=== PATIENT | female | born 1940 | race Caucasian/White ===

== ENCOUNTER 2021-06-13 17:37 | Inpatient (IN) | payer MEDICARE, SELFPAY ==
[2021-06-13 17:06] VITALS: BP 146/77; PULSE 100; RESP 18; TEMP 36.2; O2SAT 96; BMI 18.6
[2021-06-13 18:28] VITALS: PULSE 94; O2SAT 96
--- NOTE | 2021-06-13 19:30 | HP.PCM_ITS ---
HPI - General General Date of Admission: 06/13/21 HPI Narrative 05/30/2021 CHRISTOPH MORGAN, is a 80 Female who underwent biopsy of cervix showing adenocarcinoma. Imaging showed pelvic mass, distant metastasis. 06/06/2021 Patient admitted to [facility] with weakness, confusion. Pain controlled with oral oxycodone. PT/OT for debility. Acute kidney injury secondary to obstruction from pelvic mass. Hyperkalemia resolved with bicarb, insulin, D50. 06/06/2021 Hemodialysis for acute kidney injury, hyperkalemia. 06/07/2021 Hemodialysis for acute kidney injury, hyperkalemia. Bilateral nephrostomy tube placement, good urine output. 06/10/2021 Doing well, pain controlled. 06/13/2021 Admit to TCU with debility, here for rehabilitation, strengthening, prior to disposition determination. [facility] Medical History (Updated 06/13/21 @ 19:[address] Chris Rojo MD) Primary cervical cancer with metastasis to other site Home Medications ascorbic acid (vitamin C) 500 mg PO DAILY 06/13/21 [History Last Taken Unknown] calcium carbonate 2 tab PO DAILY 06/13/21 [History Last Taken Unknown] cholecalciferol (vitamin D3) 10 mcg PO DAILY 06/13/21 [History Last Taken Unknown] ciprofloxacin HCl [Cipro] 250 mg PO Q12H 06/13/21 [History Last Taken Unknown] docusate sodium [Colace] 100 mg PO BID 06/13/21 [History Last Taken Unknown] gabapentin 300 mg PO BID 06/13/21 [History Last Taken Unknown] multivitamin 1 tab PO DAILY 06/13/21 [History Last Taken Unknown] oxycodone 5 mg PO Q4H PRN 06/13/21 [History Last Taken Unknown] Allergy/AdvReac Type Severity Reaction Status Date / Time Penicillins Allergy Other Verified 06/13/21 17:07 Surgical History (Updated 06/13/21 @ 19:[address] Chris Rojo MD) Nephrostomy status Social History (Updated 06/13/21 @ 19:[address] Chris Rojo MD) household members: children Smoking Status: Never smoker alcohol intake: never substance use type: does not use ROS Constitutional Constitutional: Denies chills, fever(s) or weight gain ENT HEENT: Denies headache(s), nasal congestion or nasal discharge Cardiovascular Cardiovascular: Denies chest pain or palpitations Respiratory/Chest Respiratory/Chest: Denies cough, excessive phlegm production or shortness of breath with exertion Gastrointestinal Gastrointestinal: Denies abdominal pain, nausea or vomiting Genitourinary Genitourinary: Denies dysuria Musculoskeletal Musculoskeletal: Denies joint pain or joint swelling Integumentary Integumentary: Denies rash or wounds Neurologic Neurologic: Denies focal weakness, numbness or tingling Psychiatric Psychiatric: Reports auditory hallucinations; Denies anxiety, depression, homicidal ideation or suicidal ideation Vital Signs Vital Signs Vital Signs: 06/13/21 17:06 06/13/21 18:28 Temperature 97.2 F L Temperature Source Temporal Pulse Rate 100 94 Pulse Rhythm Irregular Pulse Strength Normal (2+) Respiratory Rate 18 Respiratory Effort Normal Non-Labored Respiratory Depth Normal Respiratory Pattern Normal Blood Pressure 146/77 H Blood Pressure Mean 100 Blood Pressure Source Monitor Blood Pressure Position Sitting Blood Pressure Location Left Arm Pulse Ox 96 96 Oxygen Delivery Method Room Air Room Air Weight Weight: 50.802 kg Body Mass Index (BMI) 18.6 Physical Exam Const alert and oriented x3 General Appearance: cooperative HEENT normocephalic Eyes PERRL and EOMs intact bilaterally Neck supple, no JVD and no carotid bruits Resp normal respiratory effort, normal air movement and clear to auscultation bilaterally Cardio regular rate and regular rhythm GI normal to inspection, nondistended, normoactive bowel sounds, non-tender and non-distended Back/Spine Back/Spine Narrative: Bilateral nephrostomy tubes to leg bags. Extremity normal capillary refill General Extremity: Negative for edema Skin no rashes or lesions noted General Skin Exam: no breakdown Psych affect normal Appearance: appropriate Results Lab / Micro Data Result Diagrams: 06/14/21 08:40 06/16/21 05:35 Assessment & Plan Assessment/Plan (1) Debility: (2) Nephrostomy status: (3) Hyperkalemia: (4) Acute kidney injury: (5) Bilateral hydronephrosis: (6) Encephalopathy: (7) Primary cervical cancer with metastasis to other site: PLAN: 80 year old female with below past medical history for recent stage 4 cervical cancer, hospitalized for acute kidney failure secondary to obstructive uropathy from pelvic mass, complicated by hyperkalemia, encephalopathy, admitted to TCU with debility, here for rehabilitation, strengthening, prior to disposition determination. * Debility - PT/OT. * Pain - Tylenol 1000mg Q6H prn pain (1-5), Oxycodone 5mg Q4H prn pain (6-10). * Bowel - Miralax 17gm daily, Senna/colace 1 tablet twice daily, Dulcolax 10mg daily prn. * Adult immunization - Administer prevnar 13, pneumovax 23, fluzone, covid19 vaccine as appropriate. * DVT prophylaxis - Lovenox 30mg sc daily. * Vitamin C deficiency - Vitamin C 500mg daily. * Calcium deficiency - TUMS 1000mg daily. * Vitamin D deficiency - D3 25mcg daily, * Urinary tract infection - Cipro 250mg Q12H thru 06/23/2021. * Nutrition - MVI daily, Ensure Enlive 120ml 4x/day. * Neuropathic pain - Gabapentin 300mg twice daily. * Stage 4 cervical cancer - consult palliative care.
[2021-06-13] MEDS: Ciprofloxacin 250 MG Tablet PO (20:52)
[2021-06-13] MEDS: Gabapentin 300 MG Capsule PO (20:52)
[2021-06-13] MEDS: Multivitamins,Therapeutic Tablet 1 TABLET PO (20:52)
[2021-06-13] MEDS: oxyCODONE 5 MG Tablet PO (20:53)
[2021-06-13] MEDS: Senna/Docusate Sodium 1 Tablet PO (20:57)
[2021-06-14] MEDS: Calcium Carbonate 500 MG Tablet 1000 MG PO (06:50)
[2021-06-14] MEDS: Gabapentin 300 MG Capsule PO ×2 (06:50→17:25)
[2021-06-14] MEDS: Enoxaparin 30 MG/0.3 ML Syringe SC (06:51)
[2021-06-14] MEDS: Cholecalciferol (VIT D3) 25 MCG TABLET (1,000 UNITS) PO (06:51)
[2021-06-14] MEDS: Ciprofloxacin 250 MG Tablet PO ×2 (06:51→20:36)
[2021-06-14] MEDS: Ascorbic Acid 500 MG Tablet PO (06:51)
[2021-06-14] MEDS: Polyethylene Glycol 3350 17 GM PACKET PO (06:52)
[2021-06-14] MEDS: Senna/Docusate Sodium 1 Tablet PO ×2 (06:52→17:25)
[2021-06-14 09:03] LABS: Absolute Lymphocyte Count 0.77 X10^3/uL (0.83-4.51); Absolute Neutrophil Count 10.6 X10^3/uL (2.0-7.7); Basophil# 0.06 X10^3/uL; Basophil% 0.5 % (0-1); Eosinophil# 0.19 X10^3/uL; Eosinophils% 1.4 % (0-5); Hematocrit 33.6 % (37-47); Hemoglobin 10.9 g/dL (12.0-15.0); Lymphocyte # 0.77 X10^3/ul (0.83-4.51); Lymphocyte % 5.8 % (19-41); Mean Corp Hgb Conc 32.4 g/dL (32-36); Mean Corpuscular Hgb 29.2 pg (27.0-32.0); Mean Corpuscular Volume 90.1 fL (81-99); Mean Platelet Vol. 9.4 fl (6.2-12.0); Monocyte# 1.61 X10^3/uL; Monocyte% 12.1 % (0-10); NRBC Flagged by Analyzer 0 % (0-5); Neutrophil # 10.55 X10^3/uL (2.7-7.7); Neutrophil % 79.4 % (47-70); POSITIVE DIFFERENTIAL YES; Platelet Count 428 K/mm3 (150-450); RBC Distribution Width CV 14.9 % (11.6-14.6); RBC Distribution Width SD 48.6 fl (35.1-43.9); Red Blood Count 3.73 M/mm3 (4.2-5.4); White Blood Count 13.3 K/mm3 (4.4-11.0)
[2021-06-14 09:04] LABS: Anion Gap 7 (5-15); BUN 16 mg/dL (7-18); BUN/Creat Ratio 13.6 RATIO (10-20); Calcium,Total 8.5 mg/dL (8.5-10.1); Chloride 103 mmol/L (98-107); Creatinine, Serum 1.18 mg/dL (0.55-1.02); EST Glomerular Filtration Rate 47 mL/min (>60); Est Glom Filt Rate - Afr Amer 56 mL/min (>60); Estimated Creatinine Clearance 29.99 ml/min; Glucose 134 mg/dL (74-106); Potassium 3.3 mmol/L (3.5-5.1); Sodium Level 137 mmol/L (136-145)
[2021-06-14 09:09] LABS: Differential Indicated SCAN CRITERIA MET
[2021-06-14 09:59] LABS: Hypochromasia RARE; Platelet Estimate ADEQUATE (ADEQ)
[2021-06-14] MEDS: Tuberculin,Purif.prot.deriv. 50 TU/ML Vial 0.1 ML ID (12:46)
[2021-06-14 13:57] VITALS: BP 111/63; PULSE 89; RESP 16; TEMP 36.9; O2SAT 98
[2021-06-14] MEDS: Bisacodyl 5 MG Tablet 10 MG PO (15:19)
--- NOTE | 2021-06-14 15:35 | NURSING ---
Pt has not had Bowel Movement since 06/10/21 PRN Dulcolax given with prune juice. Will continue to monitor.
[2021-06-14] MEDS: Potassium Chloride Oral Tablet 20 MEQ PO (17:25)
--- NOTE | 2021-06-14 23:46 | NURSING ---
Nephrostomy tubing and bags changed to bilat nephrostomy tubes, assisted by OWEN Mauro using sterile technique.
[2021-06-15 06:12] VITALS: BP 103/40; PULSE 79; RESP 16; TEMP 36.7; O2SAT 95
[2021-06-15] MEDS: Calcium Carbonate 500 MG Tablet 1000 MG PO (06:15)
[2021-06-15] MEDS: Ciprofloxacin 250 MG Tablet PO ×2 (06:15→18:55)
[2021-06-15] MEDS: Ascorbic Acid 500 MG Tablet PO (06:15)
[2021-06-15] MEDS: Cholecalciferol (VIT D3) 25 MCG TABLET (1,000 UNITS) PO (06:16)
--- NOTE | 2021-06-15 06:20 | NURSING ---
B/L nephrostomy each drained for 100 ml james colored urine. Lt nephrostomy bag w/ scant amount of brown sediment. Encouraged pt to consume increased intake of water to prevent dehydration and prevent recurrent infection.
[2021-06-15] MEDS: Enoxaparin 30 MG/0.3 ML Syringe SC (06:22)
[2021-06-15] MEDS: Multivitamins,Therapeutic Tablet 1 TABLET PO (08:38)
[2021-06-15] MEDS: Gabapentin 300 MG Capsule PO ×2 (08:38→17:06)
[2021-06-15] MEDS: Potassium Chloride Oral Tablet 20 MEQ PO ×2 (08:38→17:06)
--- NOTE | 2021-06-15 10:51 | NURSING ---
Called Dr. Rojo to clarify order for Breanne would like to hold the first dose and start 1700. Updated him on pt's BLE Edema no new orders at this time. Pt's up in chair Justin Wraps on BLE and elevated on pillow. Will continue to monitor.
[2021-06-15 12:34] VITALS: BP 108/54; PULSE 82; RESP 16; TEMP 36.5; O2SAT 96
[2021-06-15] MEDS: Senna/Docusate Sodium 1 Tablet PO (17:06)
[2021-06-16] MEDS: Cholecalciferol (VIT D3) 25 MCG TABLET (1,000 UNITS) PO (05:34)
[2021-06-16] MEDS: Ciprofloxacin 250 MG Tablet PO ×2 (05:34→17:50)
[2021-06-16] MEDS: Ascorbic Acid 500 MG Tablet PO (05:34)
[2021-06-16] MEDS: Senna/Docusate Sodium 1 Tablet PO ×2 (05:34→17:50)
[2021-06-16] MEDS: Enoxaparin 30 MG/0.3 ML Syringe SC (05:38)
[2021-06-16 06:34] LABS: Anion Gap 5 (5-15); BUN 16 mg/dL (7-18); BUN/Creat Ratio 15.7 RATIO (10-20); Calcium,Total 8.1 mg/dL (8.5-10.1); Chloride 107 mmol/L (98-107); Creatinine, Serum 1.02 mg/dL (0.55-1.02); EST Glomerular Filtration Rate 55 mL/min (>60); Est Glom Filt Rate - Afr Amer 67 mL/min (>60); Estimated Creatinine Clearance 34.69 ml/min; Glucose 88 mg/dL (74-106); Potassium 4.2 mmol/L (3.5-5.1); Sodium Level 138 mmol/L (136-145)
[2021-06-16] MEDS: Calcium Carbonate 500 MG Tablet 1000 MG PO (08:04)
[2021-06-16] MEDS: Multivitamins,Therapeutic Tablet 1 TABLET PO (08:04)
[2021-06-16] MEDS: Potassium Chloride Oral Tablet 20 MEQ PO ×2 (08:04→17:50)
[2021-06-16] MEDS: Gabapentin 300 MG Capsule PO ×2 (08:04→17:50)
[2021-06-16 09:56] VITALS: PULSE 94; RESP 16; O2SAT 94
--- NOTE | 2021-06-16 10:59 | CASEMGMT ---
Addendum entered by Khloe Elizalde 06/16/21 15:27: Dr. Rojo consulted [facility]. Spoke with Sheba STONE this date - sent clinicals to [facility]. Pt to be seen for new dx of cancer Original Note: Social Work Met with patient for initial assessment. Discussed code status. Pt confirmed DNR-CCA, no intubation. MOLST form completed, communication to , placed in chart. Explained [facility] insurance with NRD 06/16 and continued stay is not guaranteed. The goal is for pt to return home at [facility] with son. Son works manager maritime and unable to assist during work hours. SW to continue to follow for DC planning. Khloe Elizalde, STAFF INTERNIST OFFICE BASED ONLY CRIMINAL INVESTIGATOR
[2021-06-16 13:06] LABS: Pathologist Review Reviewed
--- NOTE | 2021-06-16 14:35 | PHA.CONS_ITS ---
Progress Note - Pharmacy Subjective: TCU Admission Objective: Allergies Penicillins Allergy (Verified 06/13/21 17:07) Other Current Medications Generic Name Dose Route Start Last Admin Trade Name Roberta PRN Reason Stop Dose Admin Acetaminophen 1,000 mg 06/13/21 19:45 Acetaminophen 500 Mg Tablet PO Q6H PRN PRN Pain Score 1-5 Ascorbic Acid 500 mg 06/14/21 06:00 06/16/21 05:34 Ascorbic Acid 500 Mg Tablet PO 500 mg DAILY RUTHANN Administration Bisacodyl 10 mg 06/13/21 19:45 06/14/21 15:19 Bisacodyl 5 Mg Tablet PO 10 mg DAILY PRN Administration Constipation Calcium Carbonate 1,000 mg 06/16/21 08:00 06/16/21 08:04 Calcium Carbonate 500 Mg Tablet PO 1,000 mg DAILY@0800 [facility] Administration Cholecalciferol 25 mcg 06/14/21 06:00 06/16/21 05:34 Cholecalciferol (Vit D3) 25 Mcg Tablet (1,000 Units) PO 25 mcg DAILY RUTHANN Administration Ciprofloxacin HCl 250 mg 06/13/21 18:00 06/16/21 05:34 Ciprofloxacin 250 Mg Tablet PO 06/23/21 18:01 250 mg Q12 RUTHANN Administration Enoxaparin Sodium 30 mg 06/14/21 06:00 06/16/21 05:38 Enoxaparin 30 Mg/0.3 Ml Syringe SC 30 mg DAILY@0600 RUTHANN Administration Gabapentin 300 mg 06/15/21 08:00 06/16/21 08:04 Gabapentin 300 Mg Capsule PO 300 mg BIDCM RUTHANN Administration Multivitamins 1 tablet 06/14/21 08:00 06/16/21 08:04 Multivitamins,Therapeutic Tablet PO 1 tablet DAILYCM [facility] Administration Nutritional Formula (Lactose Free) 120 ml 06/13/21 22:00 06/16/21 11:49 Ensure Enlive 120 Ml Liquid PO Not Given 4X/DAY [facility] Oxycodone HCl 5 mg 06/13/21 19:47 06/13/21 20:53 Oxycodone 5 Mg Tablet PO 5 mg Q4H PRN Administration Pain Score 6-10 Polyethylene Glycol 17 gm 06/14/21 06:00 06/16/21 05:34 Polyethylene Glycol 3350 17 Gm Packet PO Not Given DAILY [facility] Potassium Chloride 20 meq 06/15/21 12:00 06/16/21 08:04 Potassium Chloride Oral Tablet 20 Meq PO 20 meq BIDCM RUTHANN Administration Senna/Docusate Sodium 1 tablet 06/13/21 20:00 06/16/21 05:34 Senna/Docusate Sodium 1 Tablet PO 1 tablet BID RUTHANN Administration Tuberculin PPD 0.1 ml 06/21/21 10:00 Tuberculin,Purif.Prot.Deriv. 50 Tu/Ml Vial ID 06/21/21 10:01 X1 ONE Problem List (Last Updated 06/13/21 @ 19:[address] Chris Rojo MD) Primary cervical cancer with metastasis to other site (Acute) Encephalopathy (Acute) Bilateral hydronephrosis (Acute) Acute kidney injury (Acute) Hyperkalemia (Acute) Debility (Acute) Nephrostomy status (Acute) Vital Signs Temp Pulse Resp BP Pulse Ox 97.7 F L 94 16 108/54 L 94 06/15/21 12:34 06/16/21 09:56 06/16/21 09:56 06/15/21 12:34 06/16/21 09:56 Oxygen Delivery Method Room Air Weight: 50.802 kg Body Mass Index (BMI) 18.6 Sodium 138 mmol/L (136-145) 06/16/21 05:35 Potassium 4.2 mmol/L (3.5-5.1) 06/16/21 05:35 Chloride 107 mmol/L (98-107) 06/16/21 05:35 Carbon Dioxide 26.0 mmol/L (21.0-32.0) 06/16/21 05:35 Anion Gap 5 (5-15) 06/16/21 05:35 BUN 16 mg/dL (7-18) 06/16/21 05:35 Creatinine 1.02 mg/dL (0.55-1.02) 06/16/21 05:35 Est GFR (MDRD) Af Amer 67 mL/min (>60) 06/16/21 05:35 Est GFR (MDRD) Non-Af 55 mL/min (>60) L 06/16/21 05:35 BUN/Creatinine Ratio 15.7 RATIO (10-20) 06/16/21 05:35 Glucose 88 mg/dL (74-106) 06/16/21 05:35 Assessment/Plan: 1. Pain: acetaminophen 1000mg PO Q6H PRN pain 1-5 and oxycodone 5mg PO Q4H PRN pain 6-10. Please continue to monitor for increased pain, PRN usage, constipation and respiratory depression. 2. UTI: ciprofloxacin 250mg PO Q12 thru 06/23/21. Please continue to monitor for S/S of infection, diarrhea, urine culture and joint pain. *3. DVT prophylaxis: enoxaparin 30mg SC daily. Please consider increasing dose to 40mg due to CrCl >30mL/min (patient's CrCl 34.7mL/min). Thanks. Please continue to monitor for S/S of bleeding, hemoglobin (last 10.9g/dL) and platelets (last 428,000). 4. Neuropathic pain: gabapentin 300mg PO BID. Please continue to monitor for S/S of confusion and renal function. *5. Vitamin C and D deficiency/calcium deficiency: ascorbic acid 500mg PO daily, calcium carbonate 1000mg PO DAILYCM, and cholecalciferol 25mcg PO daily. Please continue to monitor calcium (last 8.1mg/dL). Please consider ordering a vitamin D level (patient does not have one in chart.) Thanks. Psychotropic Medications: None Unnecessary Medications: None Bowel Regimen: Miralax 17gm PO daily, senna/docusate 1T PO BID and bisacodyl 10mg PO daily PRN constipation. Please continue to monitor for constipation and PRN usage. Date of Note:: 06/16/21
[2021-06-16 16:00] VITALS: BP 107/74; PULSE 74; RESP 17; TEMP 36.7; O2SAT 96
--- NOTE | 2021-06-16 16:55 | CON.PCM.PA_ITS ---
Assessment & Plan Assessment/Plan (1) Debility: (2) Primary cervical cancer with metastasis to other site: (3) Encephalopathy: (4) Bilateral hydronephrosis: (5) Nephrostomy status: (6) Bilateral lower extremity edema: PLAN: 80-year-old female with newly diagnosed metastatic cervical cancer, seen today for palliative care consultation for symptom management of cancer related pain, weakness, and debility. 1. Cancer related pain/metastatic cervical cancer: Stable, she is controlled on oxycodone 5 mg q4 hours PRN and acetaminophen 1 g every 6 hours PRN. She also takes gabapentin 300 mg twice daily. We will continue to monitor and adjust medications as needed. 2. Debility and weakness: She is receiving therapy, we will monitor her progress. 3. Encephalopathy/bilateral hydronephrosis s/p nephrostomy tubes/lower extremity edema: Complicates overall care, management, recovery, and prognosis. Thank you for the opportunity to participate in this patient's care, please do not hesitate to contact [facility] with any further questions or concerns. Palliative direct line is [phone]. Daughter and patient are interested in liaison visit, we will have that arranged within the next 24 to 48 hours. Please let us know when the patient is discharged so we have prompt follow-up at that time. Greater than 50% of F2F visit dedicated to education and counseling of palliative care services, medications, comorbid conditions and potential assistance with management, and plan of care moving forward. Start time: 1655 End time: 1744 HPI Consult Data Date of Consult: 06/16/21 HPI Narrative HPI Narrative: CHRISTOPH MORGAN, is a 80 F who presented to [facility] transitional care unit from [facility] for therapy after being hospitalized with weakness, confusion, and biopsy of cervix which showed adenocarcinoma. Imaging revealed a pelvic mass with distant metastasis. She was started on oxycodone at the hospital. Was also treated for an KANNAN secondary to obstructive uropathy from pelvic mass. She required hemodialysis for the KANNAN and hyperkalemia. Subsequently, bilateral nephrostomy tubes were placed and has been doing fairly well since. Her white count on 06/14 was 13.3. Platelets are stable at 428. Potassium a little low at 3.3 and creatinine 1.18 with a BUN of 16. Patient lives at home with her son. He cannot be her full-time caregiver as he works full-time. Patient is typically very independent at home and performs all her own ADLs. She is very active other than recently due to her fatigue and lower extremity edema, which is making it difficult to ambulate. She is interested in some DME when she returns home, including possibly a walker. She is also interested in ongoing therapy when she is discharged. Patient follows with Dr. Pretty at [place] for oncology. She lives in [place]. Patient denies any nausea or vomiting. No pain. She does feel weak and tired, again has lower extremity edema that is new the past couple of weeks. She has tried ALYSON hose but they are too difficult for her to don. Currently has Justin wraps, which seemed to be falling down constantly. Denies any further confus ion, daughter Nieves says she is forgetful. No chest pain or shortness of breath. She does have some lower abdominal pain/low back pain at times. Abdomen and groin area have been swollen/edematous. [facility] Medical History Primary cervical cancer with metastasis to other site Home Medications ascorbic acid (vitamin C) 500 mg PO DAILY 06/13/21 [History Last Taken Unknown] calcium carbonate 2 tab PO DAILY 06/13/21 [History Last Taken Unknown] cholecalciferol (vitamin D3) 10 mcg PO DAILY 06/13/21 [History Last Taken Unknown] ciprofloxacin HCl [Cipro] 250 mg PO Q12H 06/13/21 [History Last Taken Unknown] docusate sodium [Colace] 100 mg PO BID 06/13/21 [History Last Taken Unknown] gabapentin 300 mg PO BID 06/13/21 [History Last Taken Unknown] multivitamin 1 tab PO DAILY 06/13/21 [History Last Taken Unknown] oxycodone 5 mg PO Q4H PRN 06/13/21 [History Last Taken Unknown] Allergy/AdvReac Type Severity Reaction Status Date / Time Penicillins Allergy Other Verified 06/13/21 17:07 Surgical History Nephrostomy status Social History household members: children Smoking Status: Never smoker alcohol intake: never substance use type: does not use ROS ROS Narrative Review of systems otherwise negative from a constitutional, HEENT, respiratory, cardiovascular, GI, genitourinary, musculoskeletal, skin, neurologic, psychiatric and hematologic system unless stated above. Physical Exam Const alert, oriented x3 and no apparent distress Constitutional Narrative: Eating up in recliner, appears mildly uncomfortable and shifting positions often. General Appearance: cooperative HEENT normocephalic and head/scalp atraumatic Neck supple General: trachea midline Resp Effort and Inspection: able to speak in complete sentences and symmetric chest movement Auscultation: clear to auscultation bilaterally Cardio S1 normal heart sound and S2 normal heart sound GI soft to palpation GI Narrative: Mild distention, edematous Auscultation: normoactive bowel sounds Narrative: Bilateral nephrostomy tubes, dressings are intact. Extremity General Extremity: edema; Negative for clubbing or cyanosis Skin Skin Narrative: Skin tear left arm Neuro CN's II-XII intact bilaterally, moves all extremities and no focal motor deficits Psych mental status grossly normal Memory / Cognition: other Recent mental status change, seems to be back to baseline per family.
--- NOTE | 2021-06-16 16:56 | NURSING ---
pt and family called staff in room. pt attempting to reposition in bed and hit left arm on side of bed and torn the skin of her left arm. This nurse applied dressing for protection. pt tolerated well.
[2021-06-17 06:24] LABS: Anion Gap 6 (5-15); BUN 17 mg/dL (7-18); Calcium,Total 8.3 mg/dL (8.5-10.1); Chloride 106 mmol/L (98-107); EST Glomerular Filtration Rate 56 mL/min (>60); Est Glom Filt Rate - Afr Amer 68 mL/min (>60); Estimated Creatinine Clearance 35.39 ml/min; Glucose 89 mg/dL (74-106); Potassium 4.4 mmol/L (3.5-5.1); Sodium Level 140 mmol/L (136-145)
[2021-06-17] MEDS: Polyethylene Glycol 3350 17 GM PACKET PO (06:53)
[2021-06-17] MEDS: Enoxaparin 30 MG/0.3 ML Syringe SC (06:53)
[2021-06-17] MEDS: Cholecalciferol (VIT D3) 25 MCG TABLET (1,000 UNITS) PO (06:53)
[2021-06-17] MEDS: Ciprofloxacin 250 MG Tablet PO ×2 (06:53→16:52)
[2021-06-17] MEDS: Ascorbic Acid 500 MG Tablet PO (06:53)
[2021-06-17] MEDS: Senna/Docusate Sodium 1 Tablet PO (06:54)
[2021-06-17] MEDS: Multivitamins,Therapeutic Tablet 1 TABLET PO (08:57)
[2021-06-17] MEDS: Potassium Chloride Oral Tablet 20 MEQ PO ×2 (08:57→16:52)
[2021-06-17] MEDS: Calcium Carbonate 500 MG Tablet 1000 MG PO (08:57)
[2021-06-17] MEDS: Gabapentin 300 MG Capsule PO ×2 (08:57→16:52)
[2021-06-17] MEDS: Acetaminophen 500 MG Tablet 1000 MG PO ×2 (08:59→18:31)
--- NOTE | 2021-06-17 10:40 | NURSING ---
EMPTIED NEPH TUBES, LT 50CC YELLOW URINE, RT 60CC TEA COLORED.
[2021-06-17 13:45] VITALS: BP 114/72; PULSE 75; RESP 18; TEMP 36.6; O2SAT 98
--- NOTE | 2021-06-17 14:32 | NURSING ---
spoke with [facility] regarding showering & dressing changes to neph tubes. showers ok but do not soak nephrostomy tube areas avoid direct spray, dressing changes to tube sites is weekly.
[2021-06-17 20:00] VITALS: PULSE 72; RESP 14; O2SAT 95
--- NOTE | 2021-06-18 01:41 | NURSING ---
Nephrostomy tubes emptied at this time. Left tube tea colored urine with sediment 85cc, right tube clear yellow urine 90cc.
[2021-06-18] MEDS: oxyCODONE 5 MG Tablet PO ×2 (04:03→20:08)
[2021-06-18] MEDS: Cholecalciferol (VIT D3) 25 MCG TABLET (1,000 UNITS) PO (05:47)
[2021-06-18] MEDS: Senna/Docusate Sodium 1 Tablet PO (05:47)
[2021-06-18] MEDS: Ciprofloxacin 250 MG Tablet PO ×2 (05:47→17:03)
[2021-06-18] MEDS: Polyethylene Glycol 3350 17 GM PACKET PO (05:47)
[2021-06-18] MEDS: Enoxaparin 30 MG/0.3 ML Syringe SC (05:47)
[2021-06-18] MEDS: Ascorbic Acid 500 MG Tablet PO (05:47)
--- NOTE | 2021-06-18 06:00 | NURSING ---
Nephrostomy bags emptied at this time, clear yellow urine right nephrostomy 70cc, left nephrostomy tube 60cc james urine. Urine observed returned to clear yellow urine in left nephrostomy tube.
[2021-06-18] MEDS: Gabapentin 300 MG Capsule PO ×2 (07:54→17:03)
[2021-06-18] MEDS: Calcium Carbonate 500 MG Tablet 1000 MG PO (07:54)
[2021-06-18] MEDS: Potassium Chloride Oral Tablet 20 MEQ PO ×2 (07:54→17:03)
[2021-06-18] MEDS: Multivitamins,Therapeutic Tablet 1 TABLET PO (07:54)
--- NOTE | 2021-06-18 14:34 | CASEMGMT ---
Social Work Plan of care meeting held today with pt present and dgt Chitina on conference call. Pt is receiving Physical therapy and Occupational therapy and progressing with care. Pt updated that NRD is 06/24 with projected d/c on 06/27. IDT is recommending 24 supervision upon return home and pt and dgt informed. Pt lives at home with her son, however he does work and is gone often in the evenings and weekends. Pt is home alone a great amount of time. SW provided information, verbal and written, on private duty care, home health care, Adult Day care, shelter facility and assisted living. Pt scheduled for family training on Wednesday. Pt and family will made decision on discharge plan after family training. Palliative medicine has seen pt and will follow for services once pt is discharged. Will continue with plan of care at this time. Per dgts request, resources also provided on OSHIIP program to assist pt and family in medicare and insurance decisions during open enrollment period. Kory MEADOWS
[2021-06-18 14:56] VITALS: BP 110/58; PULSE 85; RESP 16; TEMP 36.6; O2SAT 96
--- NOTE | 2021-06-18 16:53 | CHAPLAIN ---
Type of Pastoral Visit _x__ Initial Visit ___ Follow-up Visit ___ On-call Visit ___ General Patient Visit ___ Spiritual Assessment ___ Family Conference ___ Bereavement ___ Rapid Response ___ Code Blue ___ Other (describe below) Pastoral Care Referral From _x__ Patient ___ Family ___ Nurse ___ Physician ___ Supervisor [employer] ___ Golf Ball Inspector ___ Other (describe below) Sacrament/Intervention _x__ Active listening ___ Anointing ___ Scientology ___ Bereavement ___ Communion ___ Aggie exploration ___ _x__ Life review _x__ Prayer ___ Reconciliation ___ Sacrament of Sick _x__ Supportive presence ___ Wedding ___ Other (describe below) Pastoral Comments patient is former employee of [employer]. and a member of [facility] [employer] [facility] [employer] in [place]
[2021-06-18] MEDS: Menthol/Lanolin/Calamine/Znox 113 GM Tube 1 APPLIC TOPICAL (17:04)
[2021-06-18 19:57] VITALS: PULSE 92; RESP 16; O2SAT 94
[2021-06-19] MEDS: oxyCODONE 5 MG Tablet PO ×2 (03:52→20:01)
[2021-06-19] MEDS: Menthol/Lanolin/Calamine/Znox 113 GM Tube 1 APPLIC TOPICAL ×2 (05:02→17:39)
[2021-06-19] MEDS: Ciprofloxacin 250 MG Tablet PO ×2 (05:03→17:39)
[2021-06-19] MEDS: Polyethylene Glycol 3350 17 GM PACKET PO (05:03)
[2021-06-19] MEDS: Senna/Docusate Sodium 1 Tablet PO (05:04)
[2021-06-19] MEDS: Ascorbic Acid 500 MG Tablet PO (05:05)
[2021-06-19] MEDS: Cholecalciferol (VIT D3) 25 MCG TABLET (1,000 UNITS) PO (05:05)
[2021-06-19] MEDS: Potassium Chloride Oral Tablet 20 MEQ PO ×2 (07:56→17:39)
[2021-06-19] MEDS: Gabapentin 300 MG Capsule PO ×2 (07:56→17:38)
[2021-06-19] MEDS: Multivitamins,Therapeutic Tablet 1 TABLET PO (07:56)
[2021-06-19] MEDS: Calcium Carbonate 500 MG Tablet 1000 MG PO (07:56)
[2021-06-19] MEDS: Acetaminophen 500 MG Tablet 1000 MG PO (15:37)
[2021-06-19 16:21] VITALS: BP 110/56; PULSE 87; RESP 16; TEMP 36.6; O2SAT 95
[2021-06-19 16:37] VITALS: PULSE 87; RESP 16; O2SAT 94
[2021-06-20] MEDS: oxyCODONE 5 MG Tablet PO (03:07)
--- NOTE | 2021-06-20 03:07 | NURSING ---
Addendum entered by Marylu Flores 06/20/21 06:51: Justin wraps applied per order. I don't like those wraps. educated on purpose of justin wraps and nephrostomy tubes, pt. states Can't we just pull them out? They are uncomfortable.Pt. educated on need for nephrostomy tubes to stay in place and educated not to attempt to remove them, pt. states oh I guess I need them. PRN Tylenol administered for pain to BLE per pt. request. No distress observed or reported. A&Ox3 with forgetfulness. Written communication left for regarding edema, lung sounds and non-compliance with BLE elevation. Original Note: POLITICAL ANTHROPOLOGIST reports patient restless, c/o pain. Pt. immediately assessed. Presents as restless, states I just can't get comfortable, my legs are hurting. Repositioned to promote comfort. Pt. noted to become restless when painful. Pt. educated on ordered pharmacologic options for pain management and encouraged to notify nurse when painful- pt. verbalized understanding. Nephrostomy bags emptied. Fluids offered and tolerated well. Edema remains to BLE, +3, lung sounds clear/diminished lower lobes. Resps even and unlabored. Pt. educated on importance of elevating BLE, verbalizes understanding but states does not like to elevate due to discomfort. Encouraged to elevate BLE as tolerated. PRN Oxy administered as ordered per pt. request. No distress observed or reported. Denies further requests. Call light in reach.
[2021-06-20] MEDS: Senna/Docusate Sodium 1 Tablet PO ×2 (04:51→16:19)
[2021-06-20] MEDS: Ciprofloxacin 250 MG Tablet PO ×2 (04:51→16:19)
[2021-06-20] MEDS: Menthol/Lanolin/Calamine/Znox 113 GM Tube 1 APPLIC TOPICAL ×2 (04:51→16:20)
[2021-06-20] MEDS: Polyethylene Glycol 3350 17 GM PACKET PO (04:51)
[2021-06-20] MEDS: Ascorbic Acid 500 MG Tablet PO (04:51)
[2021-06-20] MEDS: Cholecalciferol (VIT D3) 25 MCG TABLET (1,000 UNITS) PO (04:52)
[2021-06-20] MEDS: Acetaminophen 500 MG Tablet 1000 MG PO ×2 (06:49→20:05)
[2021-06-20] MEDS: Calcium Carbonate 500 MG Tablet 1000 MG PO (08:26)
[2021-06-20] MEDS: Potassium Chloride Oral Tablet 20 MEQ PO ×2 (08:26→16:19)
[2021-06-20] MEDS: Multivitamins,Therapeutic Tablet 1 TABLET PO (08:26)
[2021-06-20] MEDS: Furosemide 40 MG Tablet PO (08:26)
[2021-06-20] MEDS: Gabapentin 300 MG Capsule PO ×2 (08:26→16:19)
--- NOTE | 2021-06-20 13:40 | CASEMGMT ---
Social Work Met with patient and dtr to answer questions and follow up on DC plans. Reiterated information from conversation with DORI Vidal prior. Encouraged dtr to make a decision and notify this worker by 06/23 to provide update to insurance 06/24 on plan. Family would like to see outcome of oncology appt 06/26, however, cautioned, insurance may not approve days to hear that outcome as DC recommendations will not change. Dtr expressed understanding. SW to continue to follow. JULISSA ChildersW
[2021-06-20 16:00] VITALS: BP 114/59; PULSE 89; RESP 16; TEMP 36.4; O2SAT 95
[2021-06-20 20:00] VITALS: PULSE 78; RESP 14; O2SAT 95
[2021-06-21] MEDS: Acetaminophen 500 MG Tablet 1000 MG PO ×2 (05:52→22:12)
[2021-06-21] MEDS: Polyethylene Glycol 3350 17 GM PACKET PO (05:53)
[2021-06-21] MEDS: Menthol/Lanolin/Calamine/Znox 113 GM Tube 1 APPLIC TOPICAL ×2 (05:53→16:21)
[2021-06-21] MEDS: Senna/Docusate Sodium 1 Tablet PO ×2 (05:53→16:21)
[2021-06-21] MEDS: Cholecalciferol (VIT D3) 25 MCG TABLET (1,000 UNITS) PO (05:53)
[2021-06-21] MEDS: Ciprofloxacin 250 MG Tablet PO ×2 (05:53→16:21)
[2021-06-21] MEDS: Ascorbic Acid 500 MG Tablet PO (05:53)
[2021-06-21] MEDS: Furosemide 40 MG Tablet PO (05:54)
[2021-06-21 07:00] LABS: Absolute Lymphocyte Count 0.88 X10^3/uL (0.83-4.51); Absolute Neutrophil Count 8.2 X10^3/uL (2.0-7.7); Basophil# 0.07 X10^3/uL; Basophil% 0.6 % (0-1); Eosinophil# 0.27 X10^3/uL; Eosinophils% 2.5 % (0-5); Hematocrit 27.8 % (37-47); Hemoglobin 8.9 g/dL (12.0-15.0); Lymphocyte # 0.88 X10^3/ul (0.83-4.51); Lymphocyte % 8.1 % (19-41); Mean Corpuscular Hgb 28.9 pg (27.0-32.0); Mean Corpuscular Volume 90.3 fL (81-99); Mean Platelet Vol. 9.2 fl (6.2-12.0); Monocyte# 1.36 X10^3/uL; Monocyte% 12.5 % (0-10); NRBC Flagged by Analyzer 0 % (0-5); Neutrophil % 75.5 % (47-70); Platelet Count 316 K/mm3 (150-450); RBC Distribution Width CV 15.7 % (11.6-14.6); RBC Distribution Width SD 51.8 fl (35.1-43.9); Red Blood Count 3.08 M/mm3 (4.2-5.4); White Blood Count 10.9 K/mm3 (4.4-11.0)
[2021-06-21 07:51] LABS: Anion Gap 7 (5-15); BUN 19 mg/dL (7-18); Calcium,Total 8.4 mg/dL (8.5-10.1); Chloride 107 mmol/L (98-107); Creatinine, Serum 1.12 mg/dL (0.55-1.02); EST Glomerular Filtration Rate 50 mL/min (>60); Est Glom Filt Rate - Afr Amer 60 mL/min (>60); Estimated Creatinine Clearance 35.45 ml/min; Glucose 87 mg/dL (74-106); Potassium 4.7 mmol/L (3.5-5.1); Sodium Level 140 mmol/L (136-145)
[2021-06-21] MEDS: Gabapentin 300 MG Capsule PO ×2 (09:24→16:21)
[2021-06-21] MEDS: Multivitamins,Therapeutic Tablet 1 TABLET PO (09:24)
[2021-06-21] MEDS: Potassium Chloride Oral Tablet 20 MEQ PO ×2 (09:24→16:21)
[2021-06-21] MEDS: Calcium Carbonate 500 MG Tablet 1000 MG PO (09:24)
[2021-06-21] MEDS: Tuberculin,Purif.prot.deriv. 50 TU/ML Vial 0.1 ML ID (14:46)
[2021-06-21 15:11] VITALS: BP 108/57; PULSE 83; RESP 16; TEMP 36.9; O2SAT 94
--- NOTE | 2021-06-21 20:05 | NURSING ---
Pt calls for assist w/ repositioning. Positioned on left side w/ pillow behind back. Call light w/ in reach.
[2021-06-21 21:41] VITALS: PULSE 94; RESP 12; O2SAT 96
[2021-06-22] MEDS: Cholecalciferol (VIT D3) 25 MCG TABLET (1,000 UNITS) PO (06:27)
[2021-06-22] MEDS: Senna/Docusate Sodium 1 Tablet PO ×2 (06:27→16:32)
[2021-06-22] MEDS: Ciprofloxacin 250 MG Tablet PO ×2 (06:27→16:32)
[2021-06-22] MEDS: Menthol/Lanolin/Calamine/Znox 113 GM Tube 1 APPLIC TOPICAL ×2 (06:27→16:33)
[2021-06-22] MEDS: Polyethylene Glycol 3350 17 GM PACKET PO (06:27)
[2021-06-22] MEDS: Furosemide 40 MG Tablet PO (06:27)
[2021-06-22] MEDS: Ascorbic Acid 500 MG Tablet PO (06:27)
[2021-06-22 08:31] LABS: Anion Gap 9 (5-15); BUN 20 mg/dL (7-18); BUN/Creat Ratio 18.3 RATIO (10-20); Calcium,Total 8.6 mg/dL (8.5-10.1); Chloride 106 mmol/L (98-107); Creatinine, Serum 1.09 mg/dL (0.55-1.02); EST Glomerular Filtration Rate 51 mL/min (>60); Est Glom Filt Rate - Afr Amer 62 mL/min (>60); Estimated Creatinine Clearance 36.42 ml/min; Glucose 107 mg/dL (74-106); Potassium 3.9 mmol/L (3.5-5.1); Sodium Level 140 mmol/L (136-145)
[2021-06-22] MEDS: Potassium Chloride Oral Tablet 20 MEQ PO ×2 (08:45→16:33)
[2021-06-22] MEDS: Multivitamins,Therapeutic Tablet 1 TABLET PO (08:45)
[2021-06-22] MEDS: Calcium Carbonate 500 MG Tablet 1000 MG PO (08:45)
[2021-06-22] MEDS: Gabapentin 300 MG Capsule PO ×2 (08:45→16:33)
[2021-06-22] MEDS: Acetaminophen 500 MG Tablet 1000 MG PO ×2 (08:47→20:12)
[2021-06-22 14:14] VITALS: BP 101/62; PULSE 93; RESP 16; TEMP 36.3; O2SAT 99
[2021-06-23] MEDS: Acetaminophen 500 MG Tablet 1000 MG PO ×3 (04:00→17:23)
[2021-06-23] MEDS: Senna/Docusate Sodium 1 Tablet PO (04:01)
[2021-06-23] MEDS: Ascorbic Acid 500 MG Tablet PO (04:01)
[2021-06-23] MEDS: Furosemide 40 MG Tablet PO (04:01)
[2021-06-23] MEDS: Ciprofloxacin 250 MG Tablet PO ×2 (04:01→17:26)
[2021-06-23] MEDS: Cholecalciferol (VIT D3) 25 MCG TABLET (1,000 UNITS) PO (04:01)
[2021-06-23] MEDS: Menthol/Lanolin/Calamine/Znox 113 GM Tube 1 APPLIC TOPICAL ×2 (04:01→17:31)
[2021-06-23] MEDS: Polyethylene Glycol 3350 17 GM PACKET PO (04:01)
[2021-06-23] MEDS: Multivitamins,Therapeutic Tablet 1 TABLET PO (07:54)
[2021-06-23] MEDS: Calcium Carbonate 500 MG Tablet 1000 MG PO (07:54)
[2021-06-23] MEDS: Potassium Chloride Oral Tablet 20 MEQ PO ×2 (07:54→17:25)
[2021-06-23] MEDS: Gabapentin 300 MG Capsule PO ×2 (07:54→17:25)
[2021-06-23] MEDS: oxyCODONE 5 MG Tablet PO ×3 (10:50→21:45)
[2021-06-23 14:55] VITALS: BP 118/59; PULSE 95; RESP 18; TEMP 36.4; O2SAT 96
--- NOTE | 2021-06-23 15:20 | CASEMGMT ---
Social Work Spoke with dtr about DC plans. Dtr hired home health aides to assist pt in the home. Dtr requesting skilled HHC, FWW with basket and 3-in-1 commode. SW to make referrals at time of DC. Family/aides to assist with dressing changes. Will notify dtr of insurance outcome 06/24. Will continue to follow. JULISSA ChildersW
[2021-06-23 22:00] VITALS: PULSE 91; RESP 14; O2SAT 98
[2021-06-24] MEDS: Acetaminophen 500 MG Tablet 1000 MG PO ×3 (00:01→21:14)
[2021-06-24] MEDS: oxyCODONE 5 MG Tablet PO ×2 (04:45→15:21)
[2021-06-24] MEDS: Ascorbic Acid 500 MG Tablet PO (04:46)
[2021-06-24] MEDS: Polyethylene Glycol 3350 17 GM PACKET PO (04:46)
[2021-06-24] MEDS: Furosemide 40 MG Tablet PO (04:46)
[2021-06-24] MEDS: Cholecalciferol (VIT D3) 25 MCG TABLET (1,000 UNITS) PO (04:46)
[2021-06-24] MEDS: Menthol/Lanolin/Calamine/Znox 113 GM Tube 1 APPLIC TOPICAL ×3 (04:47→21:13)
[2021-06-24] MEDS: Senna/Docusate Sodium 1 Tablet PO ×2 (04:52→17:10)
[2021-06-24] MEDS: Multivitamins,Therapeutic Tablet 1 TABLET PO (08:04)
[2021-06-24] MEDS: Gabapentin 300 MG Capsule PO ×2 (08:04→17:10)
[2021-06-24] MEDS: Calcium Carbonate 500 MG Tablet 1000 MG PO (08:04)
[2021-06-24] MEDS: Potassium Chloride Oral Tablet 20 MEQ PO ×2 (08:04→17:10)
--- NOTE | 2021-06-24 15:04 | CASEMGMT ---
Social Work Insurance issued LCD 06/26, DC 06/27. Spoke with dtr whom is agreeable to DC. Confirmed DC home. Dtr requesting [facility]. Referral made for PT/OT/SN/[place]. Dtr requesting FWW, w/c, and 3-in-1 commode. Explained insurance will pay for w/c and BSC, dtr can purchase FWW - referred to [employer]. Dtr to transport pt at 11 am. Dtr is teachable caregiver for nephrostomy tube dressing changes. Plan: DC home 06/27 with family support, nonskilled JAVA [employer] SERVICES DEVELOPER, [facility] PT/OT/SN/[place], [employer] - FWW, BSC Khloe Elizalde, FOOT ROENTGENOLOGIST BEAMSTER
[2021-06-24 16:20] VITALS: BP 104/42; PULSE 97; RESP 18; TEMP 37.3; O2SAT 96
--- NOTE | 2021-06-24 19:52 | DS.PCM_ITS ---
Providers Date of Admission: 06/13/21 Consultations 06/13/21 19:45 Consult: Hospice / Palliative Care Routine Consulting Provider: [facility] Reason for Consult: Palliative for stage 4 cervical cancer, ureteral obstr uction. EMERGENT Consult: No MD Notified: Yes Date Notified: 06/13/21 Time Notified: 19:47 Method of Notification: Verbal Reason For Visit: ACUTE KIDNEY INJURY Diagnosis Discharge Diagnosis (1) Debility: Status: Acute Code(s): R53.81 - Other malaise (2) Primary cervical cancer with metastasis to other site: Status: Acute Code(s): C53.9 - Malignant neoplasm of cervix uteri, unspecified (3) Encephalopathy: Status: Acute Code(s): G93.40 - Encephalopathy, unspecified (4) Bilateral hydronephrosis: Status: Acute Code(s): N13.30 - Unspecified hydronephrosis (5) Nephrostomy status: Status: Acute Code(s): Z93.6 - Other artificial openings of urinary tract status (6) Bilateral lower extremity edema: Status: Acute Code(s): R60.0 - Localized edema Medications at Discharge Home Medications ascorbic acid (vitamin C) 500 mg PO DAILY 06/13/21 calcium carbonate 2 tab PO DAILY 06/13/21 cholecalciferol (vitamin D3) 10 mcg PO DAILY 06/13/21 multivitamin 1 tab PO DAILY 06/13/21 acetaminophen 1,000 mg PO Q6H PRN PRN #0 tab 06/24/21 bisacodyl 10 mg PO DAILY PRN #0 tab 06/24/21 furosemide 40 mg PO DAILY 30 Days #30 tab 06/24/21 gabapentin 300 mg PO BID 30 Days #30 cap 06/24/21 menthol-zinc oxide [Calmoseptine] 1 applic TOPICAL BID #0 g 06/24/21 oxycodone 5 mg PO Q4H PRN 7 Days #42 tab 06/24/21 polyethylene glycol 3350 [HealthyLax] 17 g PO DAILY 30 Days #30 ea 06/24/21 potassium chloride [Klor-Con M20] 20 meq PO BIDCM 30 Days #60 tab 06/24/21 sennosides-docusate sodium [Stool Softener-Stimulant Laxat] 1 tab PO BID 30 Days #60 tab 06/24/21 Hospital Course Operations None Procedures - (Bilateral nephrostomy tubes.) Summary of Care Provided Minutes Spent on Discharge: 35 Hospital Course: 80 year old female with below past medical history for recent stage 4 cervical cancer, hospitalized for acute kidney failure secondary to obstructive uropathy from pelvic mass, complicated by hyperkalemia, encephalopathy, admitted to TCU with debility, here for rehabilitation, strengthening, prior to disposition determination. Discharge home with family support 06/27/2021, nonskilled home health aides, [facility] PT/OT/SN/[employer], [employer] - Front wheeled walker, bedside commode. Physical Exam Const alert and oriented x3 General Appearance: cooperative HEENT normocephalic Eyes PERRL and EOMs intact bilaterally Neck supple, no JVD and no carotid bruits Resp normal respiratory effort, normal air movement and clear to auscultation bilaterally Cardio regular rate and regular rhythm GI normal to inspection, nondistended, normoactive bowel sounds, non-tender and non-distended Back/Spine Back/Spine Narrative: Bilateral nephrostomy tubes. Extremity normal capillary refill General Extremity: Negative for edema Skin no rashes or lesions noted General Skin Exam: no breakdown Psych affect normal Appearance: appropriate Weight / BMI Weight Weight: 57.351 kg Body Mass Index (BMI) 18.6 ABG / Lab / Microbiology Data Result Diagrams: 06/21/21 06:46 06/22/21 08:09 D/C Instructions Discharge Diet: No restrictions Discharge Activity: Return to Normal Activity, May Shower and Use Walker Weight Bearing Status: Weight bearing as tolerated Call your doctor if you observe: Fever of 101 or Higher, Inability to urinate, Inability to have a bowel movement, Shortness of breath, Dizziness, Fainting spells, Swelling in the ankles, Chest pain and Uncontrolled pain Additional Instructions: Discharge home with family support 06/27/2021, nonskilled home health aides, [facility] PT/OT/ SN/[employer], [employer] - Front wheeled walker, bedside commode. Please Follow Up With: Blaine Gutierrez When: 1 week. Meaningful Use Info Meaningful Use Diagnoses (Choose all that apply): None applicable Discharge Plan Admission Admit Date/Time: 06/13/21 17:37 Primary Reason for Your Visit: Debility. Attending Provider: Chris Rojo Chi Consulting Providers: Sneha Martin ; Derik Herrera ; Claudine Mcfarland ; Sheba Hernandez ; Brianne Whitt ; Rosalva Enriquez MANAGING DIRECTOR Instructions Additional Instructions / Restrictions: Discharge home with family support 06/27/2021, nonskilled home health aides, [facility] PT/OT/SN/[employer], [employer] - Front wheeled walker, bedside commode. Discharge Orders/Prescriptions Prescriptions: New furosemide 40 mg Tablet 40 mg PO DAILY 30 Days Qty: 30 RF: 0 polyethylene glycol 3350 [HealthyLax] 17 gram Powder In Packet 17 g PO DAILY 30 Days Qty: 30 RF: 0 sennosides-docusate sodium [Stool Softener-Stimulant Laxat] 8.6-50 mg Tablet 1 tab PO BID 30 Days Qty: 60 RF: 0 acetaminophen 500 mg Tablet 1,000 mg PO Q6H PRN PRN (Reason: Pain Score 1-5) Qty: 0 RF: 0 potassium chloride [Klor-Con M20] 20 mEq Tablet,Er Particles/Crystals 20 meq PO BIDCM 30 Days Qty: 60 RF: 0 bisacodyl 5 mg Tablet,Delayed Release (Dr/Ec) 10 mg PO DAILY PRN (Reason: Constipation) Qty: 0 RF: 0 menthol-zinc oxide [Calmoseptine] 0.44-20.6 % Ointment 1 applic topical BID Qty: 0 RF: 0 Continued multivitamin Tablet 1 tab PO DAILY RF: 0 ascorbic acid (vitamin C) 500 mg Tablet 500 mg PO DAILY RF: 0 cholecalciferol (vitamin D3) 10 mcg (400 unit) Tablet 10 mcg PO DAILY RF: 0 calcium carbonate 600 mg calcium (1.5 gram) Tablet,Chewable 2 tab PO DAILY RF: 0 gabapentin 300 mg Capsule 300 mg PO BID 30 Days Qty: 30 RF: 0 oxycodone 5 mg Tablet 5 mg PO Q4H PRN (Reason: Pain) 7 Days Qty: 42 RF: 0 Discontinued docusate sodium [Colace] 100 mg Capsule 100 mg PO BID RF: 0 ciprofloxacin HCl [Cipro] 250 mg Tablet 250 mg PO Q12H RF: 0 Disposition Disposition (needs filled in before D/C Order can be placed): Home Health Service
[2021-06-25] MEDS: Ascorbic Acid 500 MG Tablet PO (06:13)
[2021-06-25] MEDS: Senna/Docusate Sodium 1 Tablet PO ×2 (06:13→16:24)
[2021-06-25] MEDS: Cholecalciferol (VIT D3) 25 MCG TABLET (1,000 UNITS) PO (06:13)
[2021-06-25] MEDS: Furosemide 40 MG Tablet PO (06:13)
[2021-06-25] MEDS: Polyethylene Glycol 3350 17 GM PACKET PO (06:13)
[2021-06-25] MEDS: Calcium Carbonate 500 MG Tablet 1000 MG PO (08:43)
[2021-06-25] MEDS: Multivitamins,Therapeutic Tablet 1 TABLET PO (08:43)
[2021-06-25] MEDS: Gabapentin 300 MG Capsule PO ×2 (08:43→16:24)
[2021-06-25] MEDS: Potassium Chloride Oral Tablet 20 MEQ PO ×2 (08:43→16:23)
[2021-06-25] MEDS: oxyCODONE 5 MG Tablet PO ×2 (08:43→21:48)
--- NOTE | 2021-06-25 14:21 | MDS.RN ---
Information for the mds was obtained from review of the clinical record, interview of resident, staff, and direct observation of resident's care.
[2021-06-25 16:00] VITALS: BP 120/61; PULSE 103; RESP 18; TEMP 37.1; O2SAT 97
[2021-06-25] MEDS: Menthol/Lanolin/Calamine/Znox 113 GM Tube 1 APPLIC TOPICAL (16:24)
[2021-06-25] MEDS: Acetaminophen 500 MG Tablet 1000 MG PO (16:26)
--- NOTE | 2021-06-25 18:57 | NURSING ---
changed dressings to bilat neph tubes d/t them rolling up and irritating skin on pt back. cleansed sites with NS, dried and applied 2x2 split gauze and opsite. pt reports skin feeling better with drsg change. pt brushed teeth and washed face at sink.
[2021-06-25 21:00] VITALS: PULSE 91; RESP 16; O2SAT 96
[2021-06-26] MEDS: Cholecalciferol (VIT D3) 25 MCG TABLET (1,000 UNITS) PO (05:17)
[2021-06-26] MEDS: Ascorbic Acid 500 MG Tablet PO (05:17)
[2021-06-26] MEDS: Furosemide 40 MG Tablet PO (05:17)
[2021-06-26] MEDS: Acetaminophen 500 MG Tablet 1000 MG PO ×2 (05:18→21:02)
[2021-06-26] MEDS: Polyethylene Glycol 3350 17 GM PACKET PO (05:18)
[2021-06-26] MEDS: Menthol/Lanolin/Calamine/Znox 113 GM Tube 1 APPLIC TOPICAL ×2 (05:18→17:52)
[2021-06-26] MEDS: Senna/Docusate Sodium 1 Tablet PO ×2 (05:18→17:52)
[2021-06-26] MEDS: Calcium Carbonate 500 MG Tablet 1000 MG PO (09:12)
[2021-06-26] MEDS: Gabapentin 300 MG Capsule PO ×2 (09:13→17:52)
[2021-06-26] MEDS: Potassium Chloride Oral Tablet 20 MEQ PO ×2 (09:13→17:52)
[2021-06-26] MEDS: Multivitamins,Therapeutic Tablet 1 TABLET PO (09:13)
--- NOTE | 2021-06-26 17:04 | CASEMGMT ---
Social Work Speech therapy requesting home ST. left with [facility] and requested addition of Speech to home health referral. Kory MEADOWS
[2021-06-26] MEDS: oxyCODONE 5 MG Tablet PO (17:51)
--- NOTE | 2021-06-26 18:02 | NURSING ---
pt returned from appt with referral for hospice. Will notify S.W.
[2021-06-26 20:50] VITALS: BP 101/51; PULSE 92; RESP 16; TEMP 36.2; O2SAT 97
[2021-06-27] MEDS: Ascorbic Acid 500 MG Tablet PO (05:49)
[2021-06-27] MEDS: Cholecalciferol (VIT D3) 25 MCG TABLET (1,000 UNITS) PO (05:49)
[2021-06-27] MEDS: Furosemide 40 MG Tablet PO (05:49)
[2021-06-27] MEDS: Menthol/Lanolin/Calamine/Znox 113 GM Tube 1 APPLIC TOPICAL (05:49)
[2021-06-27 05:56] VITALS: BP 120/60; PULSE 93; RESP 16; TEMP 36.9; O2SAT 95
[2021-06-27] MEDS: Multivitamins,Therapeutic Tablet 1 TABLET PO (08:09)
[2021-06-27] MEDS: Calcium Carbonate 500 MG Tablet 1000 MG PO (08:09)
[2021-06-27] MEDS: Potassium Chloride Oral Tablet 20 MEQ PO (08:09)
[2021-06-27] MEDS: Gabapentin 300 MG Capsule PO (08:09)
[2021-06-27] MEDS: Acetaminophen 500 MG Tablet 1000 MG PO (09:32)
[2021-06-27 10:04] VITALS: BP 102/49; PULSE 95; RESP 18; TEMP 36.6; O2SAT 96
[2021-06-27] MEDS: oxyCODONE 5 MG Tablet PO (10:23)
--- NOTE | 2021-06-27 11:47 | NURSING ---
THERE IS AN ORDER FOR A CONSULT FOR HOSPICE. NOTIFIED [employer]. SHE STATED OK TO D/C RESIDENT. SHE WILL NOTIFY HOSPICE AND HAVE THEM MEET AT [facility].
--- NOTE | 2021-06-27 13:22 | CASEMGMT ---
Social Work Nursing reporting that pt was to see oncologist yesterday and referral to Hospice has been requested. SW met with pt dgt Toshia and discussed discharge plan. Toshia confirms that she and pt are agreeable to discharge with referral to Hospice and is understanding that she cannot have home health and hospice services. Referral to [facility] and clinicals faxed. [facility] will reach out to Toshia and will followup with pt and Toshia at home. VM left for Hailee at [facility] and home health services cancelled. Emotional support provided to pt dgt. DORI Simons
== END 2021-06-27 11:50 | disposition home health service (06) | DRG 755 ==
PROVIDERS: Admitting Provider Family Medicine Geriatric Medicine; Visit Provider Family Medicine Geriatric Medicine
DX: C53.9 Malignant neoplasm of cervix uteri, unspecified (principal); N39.0 Urinary tract infection, site not specified; C79.89 Secondary malignant neoplasm of other specified sites; N13.30 Unspecified hydronephrosis; G89.3 Neoplasm related pain (acute) (chronic); E55.9 Vitamin D deficiency, unspecified; Z79.899 Other long term (current) drug therapy; Z93.6 Other artificial openings of urinary tract status
CPT/HCPCS: 36415; 80048; 85025; 92507; 92523; 97110; 97116; 97162; 97166; 97530; 97535; 97802